=== PATIENT | male | born 1940 | race Caucasian/White ===

== ENCOUNTER 2020-06-21 09:24 | Outpatient (REF) | payer MEDICARE, SELFPAY ==
--- NOTE | 2020-06-21 09:42 | XR_ITS ---
EXAMINATION: XR LUMBAR SPINE XR PELVIS CLINICAL INFORMATION: Low back pain, right leg pain. COMPARISON: None TECHNIQUE: Pelvis one view. Lumbar spine three views. FINDINGS: PELVIS: [id number] bilateral hip joint arthritis, with joint space loss and osteophytes. No evidence of acute fracture or dislocation. Pelvic bones appear intact without acute fracture. There is spurring at the iliac crest bilaterally. No diastasis of the SI joints. No symphysis pubis degeneration. Phleboliths in the pelvis. LUMBAR SPINE: Normal alignment. Multilevel disc degenerative changes in the visualized lower thoracic and lumbar spine. This includes severe disc degeneration at L4-L5, L5-S1, with disc height loss, endplate osteophytes. Multilevel facet degeneration. No acute fracture seen. IMPRESSION: 1. [id number] bilateral hip joint arthritis. 2. 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 This includes severe L4-L5, L5-S1 disc degeneration.
== END 2020-06-21 09:25 | disposition home or self-care (01) ==
LOC: HO.XRAY 09:24
PROVIDERS: Visit Provider Chiropractor
DX: M54.5 Low back pain (principal); M79.604 Pain in right leg
CPT/HCPCS: 72100; 72170